=== PATIENT | female | born 1960 | race Caucasian/White ===

== ENCOUNTER 2020-12-15 14:36 | Outpatient (CLI) | payer MEDICARE, MEDICAID ==
--- NOTE | 2020-12-15 15:17 | XRAY Report ---
PROCEDURE: Foot 3 View BILAT INDICATIONS: BL FEET PAIN,LAT R FOOT DORSURM L FOOT TECHNIQUE: 3 views of each foot were acquired. COMPARISON: None FINDINGS: Bones: No fractures or dislocations. No suspicious bony lesions. There is bilateral minimal to mil d scattered IP degenerative narrowing. No erosions or periarticular osteophytes. Minimal midfoot dege nerative changes present bilaterally. Soft tissues: No tibiotalar joint effusion. Achilles tendon appears normal. IMPRESSION: Minimal to mild arthritic changes bilaterally as above. Reviewed by: Francisca Kyle MD on 12/15/2020 3:16 PM PDT Approved by: Francisca Kyle MD on 12/15/2020 3:16 PM PDT Station ID: [id number]
== END 2020-12-15 14:37 | disposition home or self-care (01) ==
LOC: DI 14:36
PROVIDERS: ATTEND Podiatrist
DX: M19.071 Primary osteoarthritis, right ankle and foot (principal); M19.072 Primary osteoarthritis, left ankle and foot